=== PATIENT | male | born 1990 | race Caucasian/White ===

== ENCOUNTER 2019-09-08 15:11 | Emergency (ER) | payer OTHER ==
--- NOTE | 2019-09-08 15:52 | ER Document Report ---
ED Medical Screen (RME) - General Chief Complaint: Dizziness Stated Complaint: ANXIETY/NUMBNESS Time Seen by Provider: 09/08/19 15:43 Notes: Patient is a 28-year-old male who presents emergency department with a 2 complaints. Patient reports this morning waking up with a sore throat, raspy voice and feeling lightheaded. Patient denies runny nose. Patient denies fever. Patient denies nausea, vomiting or diarrhea. Patient reports that he has been under a lot of increased stress recently. Patient is here working from out of town as he does live in [place]. Patient reports on the way to the emergency department he was driving and had an anxiety attack. Patient reports this attack lasted about 30 minutes. Patient reports once he arrived to the emergency department his symptoms subsided but still continues to have chest tightness. Patient reports during the anxiety attack he had blurred vision, dizziness. Patient reports that normally he can control his anxiety attacks but this is the worst when he is had in a while. Patient denies pain at this time. Denies suicidal or homicidal ideation. Does not take anything for his anxiety. TRAVEL OUTSIDE OF THE [place] IN LAST 30 DAYS: No - Related Data Allergies/Adverse Reactions: meperidine [From Demerol] Allergy (Verified 09/08/19 15:44) Home Medications: ibuprofen Past Medical History - Social History Chew tobacco use (# tins/day): No Frequency of alcohol use: Occasional Drug Abuse: None Physical Exam - Vital signs Vitals: Temp Pulse Resp BP Pulse Ox 98.1 F 91 22 H 153/81 H 100 09/08/19 15:16 09/08/19 15:16 09/08/19 15:16 09/08/19 15:16 09/08/19 15:16 - Respiratory Respiratory status: No respiratory distress Chest status: Nontender Breath sounds: Normal Chest palpation: Normal Course - Re-evaluation Re-evalutation: 09/08/19 15:52 I have greeted and performed a rapid initial assessment of this patient. A comprehensive ED assessment and evaluation of the patient, analysis of test results and completion of the medical decision making process will be conducted by additional ED providers. - Vital Signs Vital signs: Temp Pulse Resp BP Pulse Ox 98.1 F 91 22 H 153/81 H 100 09/08/19 15:16 09/08/19 15:16 09/08/19 15:16 09/08/19 15:16 09/08/19 15:16
--- NOTE | 2019-09-08 16:24 | RADIOLOGY REPORT (SQ) ---
EXAM DESCRIPTION: CHEST 2 VIEWS COMPLETED DATE/TIME: 09/08/2019 4:15 pm REASON FOR STUDY: CHEST TIGHTNESS COMPARISON: None. EXAM PARAMETERS: NUMBER OF VIEWS: Two views. TECHNIQUE: PA and lateral views of the chest were obtained.. RADIATION DOSE: NA LIMITATIONS: none FINDINGS: LUNGS AND PLEURA: No consolidation, pleural effusion or pneumothorax. MEDIASTINUM AND HILAR STRUCTURES: No mediastinal or hilar contour abnormality. HEART AND VASCULAR STRUCTURES: The cardiac silhouette and pulmonary vasculature are within normal perez its. BONES: No acute findings. HARDWARE: None in the chest. OTHER: No other finding. IMPRESSION: No acute cardiopulmonary process. TECHNICAL DOCUMENTATION: JOB ID: [id number] 2010 [employer]- All Rights Reserved Reading location - IP/workstation name: [email or web address]
[2019-09-08] MEDS ORDERED: DEXAMETHASONE SOD PHOS INJ 10 MG/1 ML VIAL IM ONE (17:50)
--- NOTE | 2019-09-08 18:01 | ER Document Report ---
ED General - General Chief Complaint: Dizziness Stated Complaint: ANXIETY/NUMBNESS Time Seen by Provider: 09/08/19 15:43 Notes: Patient is a 28-year-old white male with a past medical history of anxiety who presents to the emergency department with a chief complaint of sore throat that began this morning. Patient reports that he travels the country for work. He is from [place]. He states that this morning he woke with a sore/scratchy throat. He states he has felt some swelling in the back of his throat. He states on the way here he started to have what he describes as a panic attack. He states this feels like a baseline panic attack. He states he became very anxious, felt short of breath and dizzy. He states those symptoms have subsided here at this time. He only now complains of sore scratchy throat. Denies any known sick contacts, fever, nausea, vomiting, diarrhea, chills, night sweats. TRAVEL OUTSIDE OF THE [place] IN LAST 30 DAYS: No - Related Data Allergies/Adverse Reactions: meperidine [From Demerol] Allergy (Verified 09/08/19 15:44) Home Medications: ibuprofen Past Medical History - Social History Smoking Status: Current Every Day Smoker Chew tobacco use (# tins/day): No Frequency of alcohol use: Occasional Drug Abuse: None Family History: None Patient has suicidal ideation: No Patient has homicidal ideation: No Review of Systems - Review of Systems EENT: Throat pain Cardiovascular: Dizziness Respiratory: Short of breath -: Yes All other systems reviewed and negative Physical Exam - Vital signs Vitals: Temp Pulse Resp BP Pulse Ox 98.1 F 91 22 H 153/81 H 100 09/08/19 15:16 09/08/19 15:16 09/08/19 15:16 09/08/19 15:16 09/08/19 15:16 - General General appearance: Appears well, Alert In distress: None - HEENT Head: Normocephalic, Atraumatic Eyes: Normal Conjunctiva: Normal Eyelashes: Normal Pupils: PERRL Ears: Normal External canal: Normal Tympanic membrane: Normal Sinus: Normal Nasal: Normal Mouth/Lips: Normal Mucous membranes: Normal Pharynx: Other - Mild uvulitis. No significant erythema. No exudate. No tonsillar hypertrophy. Patent airway. Patient handling secretions well. No sublingual or submental swelling. No trismus. Neck: Normal. No: Lymphadenopathy - Respiratory Respiratory status: No respiratory distress Chest status: Nontender Breath sounds: Normal Chest palpation: Normal - Cardiovascular Rhythm: Regular Heart sounds: Normal auscultation - Neurological Neuro grossly intact: Yes Cognition: Normal Orientation: AAOx4 Hillister Coma Scale Eye Opening: Spontaneous Janet Coma Scale Verbal: Oriented Hillister Coma Scale Motor: Obeys Commands Hillister Coma Scale Total: 15 Speech: Normal - Psychological Associated symptoms: Normal affect, Normal mood - Skin Skin Temperature: Warm Skin Moisture: Dry Skin Color: Normal Course - Re-evaluation Re-evalutation: 09/08/19 20:41 Strep swab negative. Chest x-ray negative for acute process. Strep swab negative. Chest x-ray negative for acute process. Patient resting comfortably in the room upon reevaluation at this time. He has had no further panic attacks. He states he needs a work note for the rest of the week off. He is going home back to [facility] or in the morning. He will fill a prescription for prednisone and follow-up in the next 2 days for reevaluation once arrives home. Advised to return here or any ER immediately with any new, persistent or worsening symptoms. He verbalized understood and agreed. - Vital Signs Vital signs: Temp Pulse Resp BP Pulse Ox 98.1 F 80 18 146/78 H 98 09/08/19 15:16 09/08/19 16:22 09/08/19 16:22 09/08/19 16:22 09/08/19 16:22 Discharge - Discharge Clinical Impression: Uvulitis Condition: Stable Disposition: HOME, SELF-CARE Instructions: Sore Throat ([facility]) Additional Instructions: Follow-up with your regular doctor in 2 to 3 days for reevaluation. Return here or any ER immediately with any new, persistent or worsening symptoms. Prescriptions: Prednisone [Deltasone 20 mg Tablet] 40 mg PO DAILY #10 tablet Forms: Return to Work
--- NOTE | 2019-09-08 18:34 | EKG REPORT ---
SEVERITY:- OTHERWISE NORMAL ECG - SINUS ARRHYTHMIA, RATE [id number] : Confirmed by: Anais Zuluaga 08-Sep-2019 18:33:56
[2019-09-08 21:09] VITALS: BP 124/80
== END 2019-09-08 21:13 | disposition home or self-care (01) ==
LOC: ER 15:11
DX: K12.2 Cellulitis and abscess of mouth (principal); J02.9 Acute pharyngitis, unspecified; F17.200 Nicotine dependence, unspecified, uncomplicated; R42 Dizziness and giddiness; R06.02 Shortness of breath; Z79.1 Long term (current) use of non-steroidal anti-inflammatories (NSAID); Z88.6 Allergy status to analgesic agent; Z88.5 Allergy status to narcotic agent
CPT/HCPCS: 93005; 87070; 87880; 71046; 93010; J1100; 96372; 99284